=== PATIENT | female | born 1980 | race Caucasian/White ===

== ENCOUNTER 2017-02-04 08:35 | Emergency (ER) | payer MEDICAID ==
[~2017-02-04] VITALS: Ht 170.2 cm; Wt 94.0 kg
[~2017-02-04 08:35] MED LIST: CIPR500T4 PO; CYCL-319 PO; GLYB2.5T2 PO; GUAI118L94 PO; HYDR-906 PO; IBUP-1542 PO; IRON18TA PO; PEN500 PO; PREN1TAB12
[2017-02-04 08:37] VITALS: Ht 170.2 cm; Wt 94.0 kg
[2017-02-04] MEDS ORDERED: NAPR-260 PO (09:17)
--- NOTE | 2017-02-04 09:24 | ERD ---
ER Documentation Chief Complaint Date/Time DATE: 02/04/17 TIME: 09:22 Chief Complaint Elbow pain HPI 36-year-old female presents with right-sided lateral epicondylar pain that started approximately a week ago. She states that she has had intermittent swelling, pain is worse when she pronates or supinates. She has not had trauma , but states that this has happened several times in the past. Patient has achy pain that is localized. She denies fevers or chills. ROS All systems reviewed and are negative except as per history of present illness. Medications Home Meds Active Scripts Naproxen* (Naprosyn*) 500 Mg Tablet, 500 MG PO BID Y for PAIN AND/OR INFLAMMATION, #30 TAB Prov:MARYANN JORGENSEN PA-C 02/04/17 Cyclobenzaprine Hcl* (Cyclobenzaprine Hcl*) 10 Mg Tablet, 10 MG PO TID, #15 TAB Prov:ROSE MARY FELDER NP 04/18/16 Hydrocodone/Acetaminophen ([place] 5-325 Tablet) 1 Each Tablet, 1 TAB PO Q6H Y for SEVERE PAIN LEVEL 7-10, #20 TAB Prov:ROSE MARY FELDER NP 04/18/16 Ciprofloxacin Hcl* (Ciprofloxacin Hcl*) 500 Mg Tablet, 500 MG PO BID for 7 Days , TAB Prov:MARYANN JORGENSEN PA-C 04/13/16 Ibuprofen* (Motrin*) 600 Mg Tab, 600 MG PO Q6, #20 TAB Prov:MARYANN JORGENSEN PA-C 04/13/16 Penicillin V Potassium* (Penicillin V K*) 500 Mg Tab, 500 MG PO BID for 10 Days , TAB Prov:MISSY CASTRO 10/20/15 Guaifenesin-Codeine Phosphate* (Guaifenesin* with Codeine Liq) 120 Ml Liquid, 5 ML PO Q4H for COUGH, #30 ML Prov:ROSE MARY FELDER PROFESSIONAL CASTER 10/27/14 Reported Medications Iron (Iron) 18 Mg Tablet, 18 MG PO 09/06/12 Glyburide* (Glyburide*) 2.5 Mg Tablet, 2.5 MG PO HS 08/29/12 Vit/Fe Fumarate/Fa ( 1-1 Tablet) 1 Tab Tablet 03/02/10 Allergies Allergies: Coded Allergies: No Known Allergies (Verified Allergy, Unknown, 04/18/16) PMhx/Soc Medical and Surgical Hx: pt denies Medical Hx, pt denies Surgical Hx History of Surgery: Yes (tubal ligation) Anesthesia Reaction: No Hx Neurological Disorder: No Hx Respiratory Disorders: No Hx Cardiac Disorders: No Hx Psychiatric Problems: No Hx Miscellaneous Medical Probl: Yes (dm) Hx Alcohol Use: No Hx Substance Use: No Hx Tobacco Use: No Smoking Status: Never smoker Physical Exam Vitals Vital Signs Date Time Temp Pulse Resp B/P Pulse Ox O2 Delivery O2 Flow Rate FiO2 02/04/17 08:37 97.6 89 20 125/83 98 Physical Exam General: Well-developed, well-nourished. The patient appears in no acute distress. HEENT: Head is normocephalic, atraumatic. No scleral icterus. Neck: Supple. Nontender. Lungs: Clear to auscultation. Normal air movement. Heart: Regular rate and rhythm. S1 and S2 are normal. No murmurs, gallops, or rubs. Abdomen: Nondistended extremities: No clubbing or cyanosis. Extremities: Tender over the right lateral epicondyle, pain is reproducible with supination and pronation. Patient has full range of motion with the right elbow flexion and extension. There is no warmth or erythema. No swelling. Normal pulses. Moving extremities x 4. No weakness. Neurologic: Alert and oriented 3. No focal deficits. Skin: Normal turgor. No rash or lesions. Procedures/MDM MDM: 36-year-old female presents with right-sided elbow pain, consistent with lateral epicondylitis. Patient denies trauma, does not show any neurovascular injury, signs of infection, septic arthritis. Patient symptoms are most consistent with lateral epicondylitis, she does not warrant any radiographic imaging at this time. She was advised to take NSAIDs, and was advised to also get a brace to apply to the elbow. Departure Diagnosis: Primary Impression: Lateral epicondylitis of elbow Condition: Good Patient Instructions: What is Tennis Elbow? MARYANN JORGENSEN PA-C Feb 04, 2017 09:24
== END 2017-02-04 09:30 | disposition home or self-care (01) ==
LOC: FTE 08:35
DX: M77.11 Lateral epicondylitis, right elbow (principal); E11.9 Type 2 diabetes mellitus without complications; Z79.84 Long term (current) use of oral hypoglycemic drugs
CPT/HCPCS: 99283

== ENCOUNTER 2017-04-16 18:43 | Emergency (ER) | payer MEDICAID ==
[~2017-04-16] VITALS: Ht 162.6 cm; Wt 95.0 kg
[~2017-04-16 18:43] MED LIST changes: +NAPR-260 PO; -PEN500 PO; +PENI500T PO
[2017-04-16 18:53] VITALS: Ht 162.6 cm; Wt 95.0 kg
[2017-04-16] MEDS ORDERED: IBUP-1542 PO (20:26)
[2017-04-16] MEDS ORDERED: ERYT1OIN6 OP (20:26)
[2017-04-16] MEDS ORDERED: PENI500T PO (20:26)
--- NOTE | 2017-04-16 20:29 | ERD ---
ER Documentation Chief Complaint Chief Complaint Sore throat x3 days, right eye pain x1 day. Denies blurry vision. Hx: DM HPI 36-year-old female presents here to emergency department for multiple complaints. Patient's complaint of sore throat, burning pain, 6/10 scale, as was upon swelling. Patient's complaint right lower eyelid pain, swelling, sharp pain, 4/10 scale, as was upon touching the area. Patient did not take any medications to help with symptoms. Patient denies any fever chills. Patient denies any shortness breath or stridor. Patient denies any vision changes, patient denies any eye discharge. ROS All systems reviewed and are negative except as per history of present illness. Medications Home Meds Active Scripts Ibuprofen* (Motrin*) 600 Mg Tab, 600 MG PO Q6H Y for PAIN AND OR ELEVATED TEMP, #30 TAB Prov:ROSE MARY FELDER NP 04/16/17 Penicillin V Potassium* (Penicillin V K*) 500 Mg Tab, 500 MG PO Q6 for 10 Days, TAB Prov:ROSE MARY FELDER NP 04/16/17 Erythromycin Base (Erythromycin) 1 Gm Oint...g., 1 GM OP Q6 for 7 Days, #1 TUB half inch ribbon on right lower lid Prov:ROSE MARY FELDER NP 04/16/17 Naproxen* (Naprosyn*) 500 Mg Tablet, 500 MG PO BID Y for PAIN AND/OR INFLAMMATION, #30 TAB Prov:MARYANN JORGENSEN PA-C 02/04/17 Cyclobenzaprine Hcl* (Cyclobenzaprine Hcl*) 10 Mg Tablet, 10 MG PO TID, #15 TAB Prov:ROSE MARY FELDER NP 04/18/16 Hydrocodone/Acetaminophen ([place] 5-325 Tablet) 1 Each Tablet, 1 TAB PO Q6H Y for SEVERE PAIN LEVEL 7-10, #20 TAB Prov:ROSE MARY FELDER NP 04/18/16 Ciprofloxacin Hcl* (Ciprofloxacin Hcl*) 500 Mg Tablet, 500 MG PO BID for 7 Days , TAB Prov:MARYANN JORGENSEN PA-C 04/13/16 Ibuprofen* (Motrin*) 600 Mg Tab, 600 MG PO Q6, #20 TAB Prov:MARAYNN JORGENSEN PA-C 04/13/16 Penicillin V Potassium* (Penicillin V K*) 500 Mg Tab, 500 MG PO BID for 10 Days , TAB Prov:MISSY CASTRO 10/20/15 Guaifenesin-Codeine Phosphate* (Guaifenesin* with Codeine Liq) 120 Ml Liquid, 5 ML PO Q4H for COUGH, #30 ML Prov:ROSE MARY FELDER CHENG TMandie ENTREPRENEUR 10/27/14 Reported Medications Iron (Iron) 18 Mg Tablet, 18 MG PO 09/06/12 Glyburide* (Glyburide*) 2.5 Mg Tablet, 2.5 MG PO HS 08/29/12 Vit/Fe Fumarate/Fa ( 1-1 Tablet) 1 Tab Tablet 03/02/10 Allergies Allergies: Coded Allergies: No Known Allergies (Verified Allergy, Unknown, 04/18/16) PMhx/Soc History of Surgery: Yes (tubal ligation) Anesthesia Reaction: No Hx Neurological Disorder: No Hx Respiratory Disorders: No Hx Cardiac Disorders: No Hx Psychiatric Problems: No Hx Miscellaneous Medical Probl: Yes (dm) Hx Alcohol Use: No Hx Substance Use: No Hx Tobacco Use: No Smoking Status: Never smoker FmHx Family History: No coronary disease, No diabetes, No other Physical Exam Vitals Vital Signs Date Time Temp Pulse Resp B/P Pulse Ox O2 Delivery O2 Flow Rate FiO2 04/16/17 18:53 98.0 103 18 115/77 98 Physical Exam GENERAL: The patient is well developed and appropriate for usual state of health, in no apparent distress. HEENT: Atraumatic. Bilateral eyes are PERRLA EOM intact. Right lower eyelid noted to be erythematous and swollen. No discharge noted. Ears: Normal tympanic membrane, no erythema or bulging. No ear canal swelling. No ear discharge. Nose: normal nasal turbinates, no erythema or swelling. Normal nasal discharge. Throat: oropharynx erythematous with tonsillar swelling or tonsillar exudates on bilateral tonsils no lymphadenopathy. CHEST: Clear to auscultation bilaterally. There are no rales, wheezes or rhonchi. HEART: Regular rate and rhythm. No murmurs, clicks, rubs or gallops. No S3 or S4. ABDOMEN: Soft, nontender and nondistended. Good bowel sounds. No rebound or guarding. No gross peritonitis. No gross organomegaly or masses. No Pavon sign or McBurney point tenderness. BACK: No midline or flank tenderness. EXTREMITIES: Equal pulses bilaterally. There is no peripheral clubbing, cyanosis or edema. No focal swelling or erythema. Full range of motion. Grossly neurovascularly intact. NEURO: Alert and oriented. Cranial nerves 2-12 intact. Motor strength in all 4 extremities with 5/5 strength. Sensation grossly intact. Normal speech and gait. SKIN: There is no apparent rash or petechia. The skin is warm and dry. HEMATOLOGIC AND LYMPHATIC: There is no evidence of excessive bruising or lymphedema. No gross cervical, axillary, or inguinal lymphadenopathy. Procedures/MDM Medical decision making: Patient symptoms is likely consistent with acute bacterial pharyngitis, most likely strep throat. Low suspicion for peritonsillar abscess, mononucleosis, no symptoms of epiglottitis, laryngitis. No oral airway obstruction noted. No symptoms of sepsis at this time. Patient appears well and is hemodynamically stable. Patient was given for amoxicillin, ibuprofen,is advised to follow-up with primary care doctor in 2-3 days for reevaluation of symptoms. Patient is advised to do salt water gargles. Patient is advised to return to emergency department for worsening symptoms. Patient also has blepharitis of the right lower eyelid. No symptoms of periorbital abscess, orbital cellulitis. No symptoms of conjunctivitis. No symptoms of any other eye emergencies at this time. Prescription was given for E-Mycin ointment applied in affected area. Warm compresses to be applied on affected area. Return to emergency department for any worsening symptoms. Disposition: Home. Stable. Disclaimer: Inadvertent spelling and grammatical errors are likely due to EHR/ dictation software use and do not reflect on the overall quality of patient care. Also, please note that the electronic time recorded on this note does not necessarily reflect the actual time of the patient encounter. Departure Diagnosis: Primary Impression: Strep pharyngitis Additional Impression: Blepharitis Blepharitis type: unspecified type Laterality: right Eyelid: lower Qualified Code: H01.002 - Blepharitis of right lower eyelid, unspecified type Condition: Stable Patient Instructions: Strep Throat, Blepharitis ROSE MARY FELDER NP Apr 16, 2017 20:29
== END 2017-04-16 20:35 | disposition home or self-care (01) ==
LOC: FTE 18:43
DX: J02.0 Streptococcal pharyngitis (principal); H01.002 Unspecified blepharitis right lower eyelid; E11.9 Type 2 diabetes mellitus without complications; Z79.84 Long term (current) use of oral hypoglycemic drugs
CPT/HCPCS: 99284

== ENCOUNTER 2018-05-02 08:11 | Emergency (ER) | END 2018-05-02 09:48 | disposition home or self-care (01) ==

== ENCOUNTER 2018-09-14 07:35 | Emergency (ER) | payer MEDICAID ==
[~2018-09-14] VITALS: Wt 92.8 kg
[~2018-09-14 07:35] MED LIST changes: +CEPH-443 PO; -CYCL-319 PO; +CYCL10TA7 PO; +ERYT1OIN6 OP; +HYDR-4011 PO; -HYDR-906 PO; -NAPR-260 PO; +NAPR-985 PO
--- NOTE | 2018-09-14 08:52 | ERD ---
ER Documentation Chief Complaint Chief Complaint right knee pain x 2 days HPI 37-year-old female, previously healthy, presents the emergency department, complaining of 2 days with worsening of right knee pain after kneeling down. The patient denies local erythema, no edema, no direct trauma. She did not hear a pop. The pain is dull, worse during ambulation and kneeling down, 09/03. The patient has been taking Tylenol with mild improvement of the pain. ROS All systems reviewed and are negative except as per history of present illness. Medications Home Meds Active Scripts Acetaminophen* (Tylenol*) 325 Mg Tablet, 2 TAB PO Q6 PRN for PAIN AND OR ELEVATED TEMP, #20 TAB Prov:AIXA PHOENIX MD 09/14/18 Ibuprofen* (Motrin*) 600 Mg Tab, 600 MG PO Q6H PRN for PAIN AND OR ELEVATED TEMP, #30 TAB Prov:AIXA PHOENIX MD 09/14/18 Ibuprofen* (Motrin*) 600 Mg Tab, 600 MG PO Q6, #30 TAB Prov:FRANCISCO THOMPSON PA-C 05/02/18 Cephalexin* (Keflex*) 500 Mg Capsule, 500 MG PO BID for 7 Days, CAP Prov:FRANCISCO THOMPSON PA-C 05/02/18 Ibuprofen* (Motrin*) 600 Mg Tab, 600 MG PO Q6H PRN for PAIN AND OR ELEVATED TEMP, #30 TAB Prov:ROSE MARY FELDER NP 04/16/17 Penicillin V Potassium* (Penicillin V K*) 500 Mg Tab, 500 MG PO Q6 for 10 Days, TAB Prov:ROSE MARY FELDER NP 04/16/17 Erythromycin Base (Erythromycin) 1 Gm Oint...g., 1 GM OP Q6 for 7 Days, #1 TUB half inch ribbon on right lower lid Prov:ROSE MARY FELDER NP 04/16/17 Naproxen* (Naprosyn*) 500 Mg Tablet, 500 MG PO BID PRN for PAIN AND/OR INFLAMMATION, #30 TAB Prov:MARYANN JORGENSEN PA-C 02/04/17 Cyclobenzaprine Hcl* (Cyclobenzaprine Hcl*) 10 Mg Tablet, 10 MG PO TID, #15 TAB Prov:ROSE MARY FELDER NP 04/18/16 Hydrocodone/Acetaminophen ([place] 5-325 Tablet) 1 Each Tablet, 1 TAB PO Q6H PRN for SEVERE PAIN LEVEL 7-10, #20 TAB Prov:ROSE MARY FELDER PLANT TAXONOMY TEACHER 04/18/16 Ciprofloxacin Hcl* (Ciprofloxacin Hcl*) 500 Mg Tablet, 500 MG PO BID for 7 Days, TAB Prov:MARYANN JORGENSEN PA-C 04/13/16 Ibuprofen* (Motrin*) 600 Mg Tab, 600 MG PO Q6, #20 TAB Prov:MARYANN JORGENSEN PA-C 04/13/16 Penicillin V Potassium* (Penicillin V K*) 500 Mg Tab, 500 MG PO BID for 10 Days, TAB Prov:MISSY CASTRO 10/20/15 Guaifenesin-Codeine Phosphate* (Guaifenesin* with Codeine Liq) 120 Ml Liquid, 5 ML PO Q4H for COUGH, #30 ML Prov:ROSE MARY FELDER PLANT TAXONOMY TEACHER 10/27/14 Reported Medications Iron (Iron) 18 Mg Tablet, 18 MG PO 09/06/12 Glyburide* (Glyburide*) 2.5 Mg Tablet, 2.5 MG PO HS 08/29/12 Vit/Fe Fumarate/Fa ( 1-1 Tablet) 1 Tab Tablet 03/02/10 Allergies Allergies: Coded Allergies: No Known Allergies (Verified Allergy, Unknown, 09/14/18) PMhx/Soc History of Surgery: Yes (tubal ligation) Anesthesia Reaction: No Hx Neurological Disorder: No Hx Respiratory Disorders: No Hx Cardiac Disorders: No Hx Psychiatric Problems: No Hx Miscellaneous Medical Probl: Yes (dm) Hx Alcohol Use: No Hx Substance Use: No Hx Tobacco Use: No Smoking Status: Never smoker FmHx Family History: No diabetes, No coronary disease Physical Exam Vitals Vital Signs Date Temp Pulse Resp B/P (MAP) Pulse Ox O2 O2 Flow FiO2 Time Delivery Rate 09/14/18 98.6 92 18 137/76 99 07:38 (96) Physical Exam Patient alert, oriented, vital signs stable. HEAD: Normocephalic, atraumatic. EYES: PERRLA, EOMI, Sclera and conjunctiva appear normal. NOSE: Clear and patent nostrils. EARS: Canals clear, tympanic membranes WNL. MOUTH: normal lips and tongue, no oral lesions. THROAT: Normal oropharynx, no tonsillar exudates. NECK: Supple, No lymphadenopathy. Full ROM without pain or tenderness. HEART: RRR, no rubs, murmurs, clicks or gallops. LUNGS: Clear to auscultation. ABDOMEN: Soft, non-tender without masses or hepatosplenomegaly. EXTREMITIES: Right knee: Normal inspection, mild peripatellar crepitus. Full passive range of motion. Distal neurovascular exam intact. No edema bilaterally. BACK: Full ROM, no deformity, normal back exam NEURO: Cranial nerves grossly intact, no motor or sensory deficit SKIN: No rashes, no petechia. Procedures/MDM Acute right knee pain: no red flags. Differential diagnosis include but not limited to: [Knee]contusion, [meniscus injury], tendon/ligament injury, arthritis; low suspicion for fracture, dislocation, septic arthritis. Neurovascular exam grossly intact. no clinical findings suggestive of acute infectious process, no acute deformity, no edema, no rashes. Pertinent Data: X-rays: No fracture or dislocation Physical examination and clinical presentation consistent most likely with derangement of the right knee. Results and clinical impression discussed with the patient who agrees with management. The patient is stable to be treated outpatient and will be discharged home with recommendations for ice, rest, NSAIDs 3 times daily for 5 days and close monitoring. The patient was instructed to follow up with the primary care provider in the next 48h. If symptoms persist, worsen or new symptoms develop, then patient should return to the ED immediately. Instructions explained and given to patient with acknowledgment and demonstrated understanding. Disclaimer: Inadvertent spelling and grammatical errors are likely due to EHR/dictation software use and do not reflect on the overall quality of patient care. Also, please note that the electronic time recorded on this note does not necessarily reflect the actual time of the patient encounter. Departure Diagnosis: Primary Impression: Derangement of knee, right Condition: Stable Additional Instructions: Muchas taryn por [facility] para torres servicio. Esperamos que en torres visita a la yang de emergencia torres problema medico haya sido solucionado y que se sienta mucho mejor. Para estar seguros que torres mejoria sigue en proceso, le pedimos el favor de hacer jorge cathi de seguimiento medico con torres doctor primario en los proximos 2-4 whitaker. Lleve con usted estos documentos y las medicinas recetadas. Si rancho sintomas empeoran, NO SE ESPERE, por favor regrese a yang de emergencia INMEDIATAMENTE. En gabe que usted no tenga un mdico de atencin primaria: Llame al mdico o clnica comunitaria de referencia que aparece abajo dylan las horas de consultorio para hacer jorge cathi para que le vean. CLINICAS: [place] [id number] [phone] [facility] [phone] [facility] [phone] [place] [id number] [phone] [place] [id number] [phone] [facility]. [phone] AIXA GRESHAM MD Sep 14, 2018 08:52
[2018-09-14] MEDS ORDERED: IBUP-1542 PO (08:54)
[2018-09-14] MEDS ORDERED: ACET325T33 PO (08:54)
== END 2018-09-14 09:07 | disposition home or self-care (01) ==
LOC: FTE 07:35
DX: M23.91 Unspecified internal derangement of right knee (principal); E11.9 Type 2 diabetes mellitus without complications
CPT/HCPCS: 99282

== ENCOUNTER 2018-10-07 08:21 | Emergency (ER) | payer MEDICAID ==
[~2018-10-07] VITALS: Wt 81.1 kg
[~2018-10-07 08:21] MED LIST changes: +ACET325T33 PO
[2018-10-07 08:23] VITALS: BP 127/77; PULSE 85; RESP 18
[2018-10-07] MEDS ORDERED: MICO100S4 VG (09:18)
[2018-10-07] MEDS ORDERED: AMOX1TAB10 PO (09:18)
[2018-10-07] MEDS ORDERED: NAPR-985 PO (09:18)
--- NOTE | 2018-10-07 09:34 | ERD ---
ER Documentation Chief Complaint Chief Complaint right jaw pain x 2 weeks HPI 38-year-old female presenting with jaw pain to the right side. Been going on for 2 weeks. She has pain in her teeth. Patient is also complaining of itching to her vagina. She is diabetic. Denies any dysuria or back pain. NKDA. Surgi jessica history denies. Social history denies ROS All systems reviewed and are negative except as per history of present illness. Medications Home Meds Active Scripts Naproxen* (Naprosyn*) 500 Mg Tablet, 500 MG PO BID PRN for PAIN AND/OR INFLAMMATION, #30 TAB Prov:RAMIREZ BROOKS PA-C 10/07/18 Amoxicillin/Potassium Clav (Amox-Clav 875-125 mg Tablet) 875-125 mg Tab, 1 TAB PO BID for 7 Days, #14 TAB Prov:RAMIREZ BROOKS PA-C 10/07/18 Miconazole Nitrate (Miconazole 7) 100 Mg Supp.vag, 100 MG VG QHS, #7 SUPP.VAG Prov:RAMIREZ BROOKS PA-C 10/07/18 Acetaminophen* (Tylenol*) 325 Mg Tablet, 2 TAB PO Q6 PRN for PAIN AND OR ELEVATED TEMP, #20 TAB Prov:AIXA PHOENIX MD 09/14/18 Ibuprofen* (Motrin*) 600 Mg Tab, 600 MG PO Q6H PRN for PAIN AND OR ELEVATED TEMP, #30 TAB Prov:AIXA PHOENIX MD 09/14/18 Ibuprofen* (Motrin*) 600 Mg Tab, 600 MG PO Q6, #30 TAB Prov:FRANCISCO THOMPSON PA-C 05/02/18 Cephalexin* (Keflex*) 500 Mg Capsule, 500 MG PO BID for 7 Days, CAP Prov:FRANCISCO THOMPSON PA-C 05/02/18 Ibuprofen* (Motrin*) 600 Mg Tab, 600 MG PO Q6H PRN for PAIN AND OR ELEVATED TEMP, #30 TAB Prov:ROSE MARY FELDER NP 04/16/17 Penicillin V Potassium* (Penicillin V K*) 500 Mg Tab, 500 MG PO Q6 for 10 Days, TAB Prov:ROSE MARY FELDER NP 04/16/17 Erythromycin Base (Erythromycin) 1 Gm Oint...g., 1 GM OP Q6 for 7 Days, #1 TUB half inch ribbon on right lower lid Prov:ROSE MARY FELDER NP 04/16/17 Naproxen* (Naprosyn*) 500 Mg Tablet, 500 MG PO BID PRN for PAIN AND/OR INFLAMMATION, #30 TAB Prov:MARYANN JORGENSEN PA-C 02/04/17 Cyclobenzaprine Hcl* (Cyclobenzaprine Hcl*) 10 Mg Tablet, 10 MG PO TID, #15 TAB Prov:ROSE MARY FELDER NP 04/18/16 Hydrocodone/Acetaminophen ([place] 5-325 Tablet) 1 Each Tablet, 1 TAB PO Q6H PRN for SEVERE PAIN LEVEL 7-10, #20 TAB Prov:ROSE MARY FELDER NP 04/18/16 Ciprofloxacin Hcl* (Ciprofloxacin Hcl*) 500 Mg Tablet, 500 MG PO BID for 7 Days, TAB Prov:MARYANN JORGENSEN PA-C 04/13/16 Ibuprofen* (Motrin*) 600 Mg Tab, 600 MG PO Q6, #20 TAB Prov:MARYANN JORGENSEN PA-C 04/13/16 Penicillin V Potassium* (Penicillin V K*) 500 Mg Tab, 500 MG PO BID for 10 Days, TAB Prov:MISSY CASTRO 10/20/15 Guaifenesin-Codeine Phosphate* (Guaifenesin* with Codeine Liq) 120 Ml Liquid, 5 ML PO Q4H for COUGH, #30 ML Prov:ROSE MARY FELDER NP 10/27/14 Reported Medications Iron (Iron) 18 Mg Tablet, 18 MG PO 09/06/12 Glyburide* (Glyburide*) 2.5 Mg Tablet, 2.5 MG PO HS 08/29/12 Vit/Fe Fumarate/Fa ( 1-1 Tablet) 1 Tab Tablet 03/02/10 Allergies Allergies: Coded Allergies: No Known Allergies (Verified Allergy, Unknown, 09/14/18) PMhx/Soc History of Surgery: Yes (tubal ligation) Anesthesia Reaction: No Hx Neurological Disorder: No Hx Respiratory Disorders: No Hx Cardiac Disorders: No Hx Psychiatric Problems: No Hx Miscellaneous Medical Probl: Yes (dm) Hx Alcohol Use: No Hx Substance Use: No Hx Tobacco Use: No FmHx Family History: No diabetes, No coronary disease, No other Physical Exam Vitals Vital Signs Date Temp Pulse Resp B/P (MAP) Pulse Ox O2 O2 Flow FiO2 Time Delivery Rate 10/07/18 98.0 85 18 127/77 98 08:23 (94) Physical Exam GENERAL: The patient is well-appearing, well-nourished, in no acute distress HEENT: Atraumatic. Conjunctivae are pink. Pupils equal, round, and reactive to light. There is no scleral icterus. Tympanic membranes clear bilaterally. Oropharynx clear. Pain with biting down to her teeth. CHEST: Clear to auscultation bilaterally. There are no rales, wheezes or rhonchi. HEART: Regular rate and rhythm. No murmurs, clicks, rubs or gallops. ABDOMEN:Soft, nontender and nondistended. Good bowel sounds. No rebound or guarding. No gross peritonitis. No gross organomegaly or masses. No Pavon sign or McBurney point tenderness. NEUROLOGIC: Alert and oriented. Cranial nerves II through XII intact. Motor strength in all 4 extremities with 5 out of 5 strength. Sensation grossly intact. Normal speech and gait. Babinski negative. DTR 2+ throughout. Results 24 hrs Laboratory Tests Test 10/07/18 08:56 10/07/18 08:58 Bedside Urine pH (LAB) 5.5 Bedside Urine Protein (LAB) Negative Bedside Urine Glucose (UA) 0.50% Bedside Urine Ketones (LAB) 1+ Bedside Urine Blood Trace-intact Bedside Urine Nitrite (LAB) Negative Bedside Urine Leukocyte Esterase (L Negative POC Beta HCG, Qualitative NEGATIVE Procedures/MDM MDM: 38-year-old female presenting with dental pain. Patient will be treated with oral antibiotics. Patient has complaints consistent with yeast infection. Given patient will be given antibiotics I will treat with vaginal suppositories. Patient is told symptoms change or worsen to return the ER. Exam is non- concerning and I have low suspicion for acute abdominal emergency. I will suspicion for urinary tract infection or pyelonephritis. Patient is discharged with strict ER precautions and told to follow-up with primary care. All questions answered at discharge Departure Diagnosis: Primary Impression: Yeast infection Additional Impression: Jaw pain Condition: Stable Patient Instructions: Dental Pain, Vaginitis, Brenna Referrals: [facility] YOU HAVE RECEIVED A MEDICAL SCREENING EXAM AND THE RESULTS INDICATE THAT YOU DO NOT HAVE A CONDITION THAT REQUIRES URGENT TREATMENT IN THE EMERGENCY DEPARTMENT. FURTHER EVALUATION AND TREATMENT OF YOUR CONDITION CAN WAIT UNTIL YOU ARE SEEN IN YOUR DOCTORS OFFICE WITHIN THE NEXT 1-2 DAYS. IT IS YOUR RESPONSIBILITY TO MAKE AN APPOINTMENT FOR FOLOW-UP CARE. IF YOU HAVE A PRIMARY DOCTOR --you should call your primary doctor and schedule an appointment IF YOU DO NOT HAVE A PRIMARY DOCTOR YOU CAN CALL OUR PHYSICIAN REFERRAL HOTLINE AT IF YOU CAN NOT AFFORD TO SEE A PHYSICIAN YOU CAN CHOSE FROM THE FOLLOWING [facility] [address] [facility] [address] [facility] [facility] [address] [facility] [phone] [facility] [facility] [address] [facility]. [address] [facility] [address] [facility] ([facility] walk in clinic) Additional Instructions: FOLLOW UP WITH YOUR PRIMARY CARE PHYSICIAN TOMORROW.Return to this facility if you are not improving as expected. RAMIREZ BROOKS PA-C October 07, 2018 09:34
== END 2018-10-07 09:45 | disposition home or self-care (01) ==
LOC: FTE 08:21
DX: R68.84 Jaw pain (principal); B37.9 Candidiasis, unspecified; E11.9 Type 2 diabetes mellitus without complications
CPT/HCPCS: 81003; 81025; Z7502; 99283

== ENCOUNTER 2019-03-28 13:20 | Emergency (ER) | payer MEDICAID ==
[~2019-03-28] VITALS: Ht 167.6 cm; Wt 91.6 kg
[~2019-03-28 13:20] MED LIST changes: +AMOX1TAB10 PO; +MICO100S4 VG
[2019-03-28 13:31] VITALS: Ht 167.6 cm; Wt 91.6 kg
[2019-03-28 16:04] VITALS: BP 121/65; PULSE 81; RESP 18
== END 2019-03-28 16:06 | disposition home or self-care (01) ==
LOC: FTE 13:20
DX: S69.91XA Unspecified injury of right wrist, hand and finger(s), initial encounter (principal); M20.011 Mallet finger of right finger(s); E11.9 Type 2 diabetes mellitus without complications; W19.XXXA Unspecified fall, initial encounter; Y92.9 Unspecified place or not applicable; Z79.84 Long term (current) use of oral hypoglycemic drugs
CPT/HCPCS: 29130; 73140; Z7502; Z7610